=== PATIENT | female | born 1955 | race Caucasian/White ===

== ENCOUNTER → 2017-10-05 | Outpatient (CLI) | payer BC, OTHER ==
[2017-10-05 14:07] VITALS: BP 165/95; PULSE 88; RESP 16; TEMP 98.2; BMI 36.6
--- NOTE | 2017-10-05 17:00 | P.BASOAP ---
Subjective Progress Note Date: 10/05/17 Principal diagnosis: Morbid obesity Patient underwent laparoscopic banding approximately 10-[address] Hercules. She does not want to see him any longer. She recently has had some pain at the site of her port extending to the left. She notices decreased restriction. Denies heartburn. No vomiting or nausea. She is unaware how much fluid is in her band. Was under the impression after her last visit that there was something wrong with her band system. She was told that the band empties slowly. Objective - Vital Signs Vital signs: Vital Signs Temp 98.2 F 10/05/17 13:43 Pulse 88 10/05/17 13:43 Resp 16 10/05/17 13:43 BP 165/95 10/05/17 13:43 Pulse Ox Intake & Output 10/04/17 10/05/17 10/05/17 18:59 06:59 18:59 Weight 90.718 kg - Exam Abdomen: Soft, nontender, nondistended Assessment/Plan (1) Morbid obesity Narrative/Plan: The patient's band port was accessed. I was unable to aspirate fluid. Injection of fluid placed with some resistance and again no fluid could be aspirated following that. We'll proceed with fluoroscopic evaluation. Plan: Date: 10/05/17 Initial Weight: 98.883 kg Initial BMI: 39.9 Current Weight: 90.718 kg Current BMI: 36.6 Type of Surgery: Total Volume in Band: 0 Previous Volume: Volume Removed: Volume Added: 0 Band Size:
--- NOTE | 2017-10-05 17:02 | P.PCN ---
Date of Procedure: 10/05/17 Procedure(s) Performed: The patient's lap band port was palpated. The site was aseptically prepped. 1% lidocaine was infiltrated into the subcutaneous tissues through a diabetic syringe. The You needle was advanced into the port. Aspiration took place. Again no fluid could be aspirated. On the fluoroscopy table using Omnipaque I injected the port. A proximally 2 mL was added again meeting resistance. There was no leak identified in the band system. The band itself was noted to fill with contrast. Unfortunately I was unable to re-aspirate that contrast fluid with the exception of approximately 0.5 mL. The patient was taken back to the bariatric clinic following that. The band was reaccessed again under aseptic conditions. The patient was asked to sit and stand several times and in doing so I was able to remove the additional 1.5 mL of fluid. Prior to doing so the patient was having some dysphagia to liquids. The patient and I discussed the options. Patient will require some sort of revision with either port replacement, band removal, or conversion from band to either gastric bypass or sleeve gastrectomy. The patient will consider these options and contact me with her decision.
--- NOTE | 2017-10-06 07:48 | FL ---
Fluoroscopy support HISTORY: Port leak 57 seconds fluoroscopy time supplied to the referring clinician, 10 cc Omni 350 utilized, no saved im ages IMPRESSION: Fluoroscopy support to general surgery.
== END | disposition home or self-care (01) ==
LOC: BARWHC3 13:13
PROVIDERS: ATTEND Surgery
DX: E66.01 Morbid (severe) obesity due to excess calories (principal); Z68.36 Body mass index [BMI] 36.0-36.9, adult; Z98.890 Other specified postprocedural states
CPT/HCPCS: 74240; 99212; Q9967

== ENCOUNTER → 2017-10-25 | Outpatient (CLI) | payer OTHER ==
[2017-10-25 15:18] VITALS: BMI 36.5
== END | disposition home or self-care (01) ==
LOC: BARWHC3 08:42
PROVIDERS: ATTEND Surgery
DX: E66.01 Morbid (severe) obesity due to excess calories (principal); Z68.36 Body mass index [BMI] 36.0-36.9, adult; Z71.3 Dietary counseling and surveillance
CPT/HCPCS: 97804

== ENCOUNTER 2017-11-03 10:56 | Day surgery (SDC) | payer OTHER ==
[2017-10-29 14:15] VITALS: BMI 36.6
[~2017-11-03 10:56] MED LIST: LACTATED RINGERS 1,000 ML IV SCH; LIDOCAINE 1% 20 ML VIAL (10MG/ML) FOR IV START INTRADERMA PRN
[2017-11-03 11:17] VITALS: RESP 16; TEMP 98
[2017-11-03] MEDS ORDERED: LIDOCAINE 1% INJ 10MG/ML (20 ML MDV) ONE (11:48)
[2017-11-03] MEDS ORDERED: PROPOFOL 10 MG/ML 20 ML VIAL IV ONE (11:48)
--- NOTE | 2017-11-03 12:01 | P.GSHP ---
History of Present Illness H&P Date: 11/03/17 Chief Complaint: vomiting Patient here today for upper endoscopy as a part of her preoperative workup for lap band removal and sleeve gastrectomy. She was having issues with vomiting when her band was recently filled. She is having issues with a port that is malfunctioning. No significant heartburn symptoms. Past Medical History Past Medical History: Cancer, Hypertension History of Any Multi-Drug Resistant Organisms: None Reported Past Surgical History: Bariatric Surgery, Section Additional Past Surgical History / Comment(s): Colonoscopy Past Anesthesia/Blood Transfusion Reactions: No Reported Reaction Smoking Status: Never smoker - Past Family History Mother Family Medical History: No Reported History Medications and Allergies Home Medications Medication Instructions Recorded Confirmed Type DULoxetine HCL [Cymbalta] 1 cap PO BID 10/08/17 11/03/17 History Propranolol HCl [Propranolol HCl 120 mg PO DAILY 10/08/17 11/03/17 History ER] Aspirin 81 mg PO DAILY 10/29/17 11/03/17 History Fluticasone Nasal [place] [Flonase 2 spr EA NOSTRIL DAILY 10/29/17 11/03/17 History Nasal [place]] Multivitamins, Thera [Multivitamin 1 tab PO DAILY 10/29/17 11/03/17 History (formulary)] Simvastatin [Zocor] 10 mg PO HS 10/29/17 11/03/17 History Allergies Allergy/AdvReac Type Severity Reaction Status Date / Time Penicillins Allergy Unknown Verified 11/03/17 11:13 Surgical - Exam Vital Signs Temp Pulse Resp BP Pulse Ox 98 F 57 L 16 136/76 94 L 11/03/17 11:15 11/03/17 11:15 11/03/17 11:15 11/03/17 11:15 11/03/17 11:15 Physical exam: General: Well-developed, well-nourished HEENT: Normocephalic, sclerae nonicteric Abdomen: Nontender, nondistended Extremities: No edema Neuro: Alert and oriented Assessment and Plan (1) Vomiting Narrative/Plan: Will proceed with upper endoscopy at this time Current Visit: Yes Status: Acute Code(s): R11.10 - VOMITING, UNSPECIFIED SNOMED Code(s): 284803211
--- NOTE | 2017-11-03 12:03 | P.PCN ---
Date of Procedure: 11/03/17 Procedure(s) Performed: Preoperative Dx: Malfunctioning LAP-BAND port, vomiting Postoperative Dx: Mild gastritis, suspected gastric prolapse Procedure: EGD with Bx Anesthesia: Sedation Endoscopist: Dr. Cruz Specimens: Antrum Endoscopic Procedure: The patient was on the endoscopy table in the left decubitus position. The Olympus gastroscope was inserted into the oropharynx and passed under direct visualization to the region of the third portion of the duodenum. From that point the scope was slowly withdrawn inspecting all surfaces carefully. There were no neoplastic inflammatory or polypoid lesions throughout the duodenum. The pylorus was widely patent. The stomach was carefully inspected. There was while gastritis present. A biopsy of the antrum took place to rule out H. pylori. Retroflexion revealed a previous band plication. No evidence of band erosion was seen. There was a enlarged pouch above the band. I suspect some degree of gastric prolapse. There was also noted to be some food-like material present above the band narrowing. Mild inflammation in the proximal gastric pouch was seen. The esophagus was free of abnormalities. I was unable to visualize a definite hiatal hernia. The patient was then taken to the recovery room in stable condition per anesthesia guidelines. Recommendations: Await biopsy results. Proceed with lap band removal and anticipated sleeve gastrectomy.
[2017-11-03 12:40] VITALS: BP 120/85; PULSE 61
== END 2017-11-03 12:48 | disposition home or self-care (01) ==
LOC: ORWHC2ENDO 10:56
PROVIDERS: ATTEND Surgery
DX: K29.50 Unspecified chronic gastritis without bleeding (principal); Z98.84 Bariatric surgery status; I10 Essential (primary) hypertension; E78.5 Hyperlipidemia, unspecified; F39 Unspecified mood [affective] disorder; Z79.82 Long term (current) use of aspirin; Z79.51 Long term (current) use of inhaled steroids; Z79.899 Other long term (current) drug therapy; Z88.0 Allergy status to penicillin; Z87.891 Personal history of nicotine dependence
CPT/HCPCS: 88305; 88342; 43239; J2001; J2704

== ENCOUNTER 2017-11-29 11:03 | Inpatient (IN) | payer OTHER ==
[~2017-11-29 11:03] MED LIST changes: +DEXAMETHASONE SOD PHOSPHATE 10 MG/ML 1 ML VIAL IV ONE; -LACTATED RINGERS 1,000 ML IV SCH; +MORPHINE SULFATE 2 MG/ML SYRINGE IV PRN; +ONDANSETRON 4 MG/2 ML VIAL IVP ONE; +SCOPOLAMINE 1.5MG/72HR PATCH TRANSDERM ONE; +ceFAZolin IN SWFI 2 GM/20 ML SYRINGE IVP ONE
--- NOTE | 2017-11-29 12:06 | P.GSHP ---
History of Present Illness H&P Date: 11/29/17 Chief Complaint: Morbid obesity, gastric prolapse, broken LAP-BAND port 61-year-old female well known to our service. Most recently came back to the bariatric clinic in September. Patient had a lap band placed approximately 10-15 years ago. She was having pain in her port site. She described very little restriction. No heartburn or vomiting. Her band was accessed and we had difficulty adding or removing fluid from the band. A fluoroscopic adjustment did not show any evidence of leak. An upper endoscopy then showed what was thought to represent an enlarged gastric pouch consistent with probable prolapse. Here today for band removal and planned sleeve gastrectomy. Past Medical History Past Medical History: Cancer, Hypertension, Osteoarthritis (OA) Additional Past Medical History / Comment(s): CERVICAL CANCER History of Any Multi-Drug Resistant Organisms: None Reported Past Surgical History: Bariatric Surgery, Section Additional Past Surgical History / Comment(s): LAP BAND SURGERY, Past Anesthesia/Blood Transfusion Reactions: Motion Sickness Smoking Status: Never smoker - Past Family History Mother Family Medical History: No Reported History Medications and Allergies Home Medications Medication Instructions Recorded Confirmed Type DULoxetine HCL [Cymbalta] 30 mg PO BID 10/08/17 11/22/17 History Propranolol HCl [Propranolol HCl 120 mg PO DAILY 10/08/17 11/22/17 History ER] Aspirin 81 mg PO DAILY 10/29/17 11/22/17 History Fluticasone Nasal [place] [Flonase 2 spr EA NOSTRIL DAILY 10/29/17 11/22/17 History Nasal [place]] Multivitamins, Thera [Multivitamin 1 tab PO DAILY 10/29/17 11/22/17 History (formulary)] Simvastatin [Zocor] 10 mg PO HS 10/29/17 11/22/17 History Allergies Allergy/AdvReac Type Severity Reaction Status Date / Time Penicillins Allergy Unknown Verified 11/29/17 11:40 Surgical - Exam Vital Signs Temp Pulse Resp BP Pulse Ox 97.6 F 59 L 18 142/88 98 11/29/17 11:55 11/29/17 11:55 11/29/17 11:55 11/29/17 11:55 11/29/17 11:55 Physical exam: General: Well-developed, well-nourished HEENT: Normocephalic, sclerae nonicteric Abdomen: Nontender, nondistended Extremities: No edema Neuro: Alert and oriented Assessment and Plan (1) Morbid obesity Narrative/Plan: Will proceed with laparoscopic lap band removal and anticipated laparoscopic sleeve gastrectomy. The risks of bleeding, infection, stenosis, stricture, leak , abscess, fistula formation, peritonitis, poor weight loss, reflux, vomiting, conversion to an open procedure, aborting sleeve gastrectomy, VA, PE, DVT, and were discussed. The patient understands and wishes to proceed. Current Visit: No Status: Acute Code(s): E66.01 - MORBID (SEVERE) OBESITY DUE TO EXCESS CALORIES SNOMED Code(s): 594193778
[2017-11-29] MEDS: LACTATED RINGERS 1,000 ML IV SCH (12:07)
[2017-11-29] MEDS ORDERED: ENOXAPARIN 40 MG/0.4 ML SYRINGE SQ STA (12:12)
[2017-11-29] MEDS ORDERED: GLYCOPYRROLATE 0.2 MG/ML 2 ML VIAL ONE (12:26)
[2017-11-29] MEDS ORDERED: fentaNYL (PF) 50 MCG/ML 2 ML AMP ONE (12:26)
[2017-11-29] MEDS ORDERED: LIDOCAINE 1% INJ 10MG/ML (20 ML MDV) ONE (12:26)
[2017-11-29] MEDS ORDERED: SUCCINYLCHOLINE CHLORIDE 100 MG/5 ML SYR IV ONE (12:26)
[2017-11-29] MEDS ORDERED: MIDAZOLAM 2 MG/2 ML VIAL ONE (12:26)
[2017-11-29] MEDS ORDERED: ePHEDrine SULFATE/0.9% NACL/PF 50 MG/5 ML SYRINGE IV ONE (12:26)
[2017-11-29] MEDS ORDERED: PROPOFOL 10 MG/ML 20 ML VIAL IV ONE (12:26)
[2017-11-29] MEDS ORDERED: ROCURONIUM BROMIDE 10 MG/ML 10 ML VIAL IV ONE (12:26)
[2017-11-29] MEDS ORDERED: HYDROmorphone (PF) 1 MG/ML ONE (12:26)
[2017-11-29] MEDS ORDERED: NEOSTIGMINE 1 MG/ML 10 ML VIAL ONE (12:26)
[2017-11-29] MEDS ORDERED: METHYLENE BLUE 10 MG/ML (10 ML VIAL) ONE (12:26)
[2017-11-29] MEDS ORDERED: BUPIVACAINE (PF) 0.25% 30 ML VIAL SQ ONE ×2 (12:58)
[2017-11-29] MEDS ORDERED: LACTATED RINGERS 1,000 ML IV ONE (13:02)
[2017-11-29] MEDS ORDERED: diphenhydrAMINE 50 MG/ML 1 ML VIAL IVP PRN (15:36)
[2017-11-29] MEDS ORDERED: ONDANSETRON 4 MG/2 ML VIAL IVP PRN (15:36)
[2017-11-29] MEDS ORDERED: HYOSCYAMINE ORAL DROPS 1.875 MG/15 ML BOTTLE PO PRN (15:36)
[2017-11-29] MEDS ORDERED: ACETAMINOPHEN IV (For NPO) 1,000 MG in EMPTY BAG 1 BAG IVPB ONE (15:36)
[2017-11-29] MEDS ORDERED: NALOXONE 0.4 MG/ML 1 ML VIAL IV PRN (15:36)
[2017-11-29] MEDS ORDERED: SIMETHICONE 40 MG/0.6 ML DROPS 2,000 MG/30 ML BOTTLE PO PRN (15:36)
[2017-11-29] MEDS ORDERED: MORPHINE SULFATE 4 MG/ML SYRINGE IVP PRN (15:36)
--- NOTE | 2017-11-29 15:43 | P.OP ---
Date of Procedure: 11/29/17 Procedure(s) Performed: PREOPERATIVE DIAGNOSIS: Morbid obesity, hypertension, GERD, gastric prolapse, malfunctioning lap band port POSTOPERATIVE DIAGNOSIS: Same PROCEDURE: Laparoscopic sleeve gastrectomy with lap band removal SURGEON: Nancy EBL: Minimal ANESTHESIA: General COMPLICATIONS: None OPERATIVE PROCEDURE: The patient was brought and placed on the operating room table in the supine position. The patient was placed under general anesthesia at that time. The patient was then placed in lithotomy. The abdomen was prepped and draped in the usual sterile fashion. The previous port incision was localized and then incised using a scalpel. The port was easily excised using electrocautery. Entrance into the peritoneal cavity occurred using a 5 mm optical trocar through the old trocar entrance site. Insufflation took place to 15 mmHg. A right subxiphoid 5 mm trocar was placed. This was then removed and the medium Carlos hook was used to elevate the left lobe of the liver anteriorly. An additional 5 mm trocar was placed under direct visualization in the left lateral upper quadrant. The original 5 mm trocar was switched to a 15 mm trocar. A additional 5 mm trocar was placed in the right upper quadrant under direct visualization and a 5 mm trocar was placed in the left upper quadrant under direct visualization and a 15 mm trocar in the supraumbilical location. The liver was retracted using a medium Carlos liver retractor through the right subxiphoid trocar site. The adhesions between the band site and the left lobe of liver were minimal and these were lysed using both blunt dissection and cautery. The hiatus was inspected. The patient had no visible hiatal hernia. The plication was taken down sharply. At that point I moved to the mid aspect of the greater curvature the stomach. The short gastric vasculature was divided using a LigaSure device proximally. I then switched and divided the short gastrics distally to a 3-4 cm from the pylorus. The dissection took place up to the left diaphragmatic crura at that point. The posterior short gastrics and posterior lateral band plication were likewise divided using the LigaSure device and blunt dissection. Once the stomach was fully mobilized the blunt tipped 40-Yi bougie dilator was advanced into the stomach and advanced all the way to the prepyloric location. A black echelon 60 stapler was utilized and fired tangentially across the antrum taking care to avoid narrowing at the incisura angularis. Subsequent firings of the stapler took place. A total of 5 green echelon 60 staplers with seam guard took place proximally staying on the outer edge of our dilator. The oral gastric tube was reinserted. The stomach was insufflated with approximately 100 mL of methylene blue. No evidence of leak or obstruction was seen. The distal aspect of the sleeve was then reapproximated to the gastrosplenic and gastrocolic ligament using a short running 2-0 strata fix suture. This was done to prevent kinking or twisting of the sleeve. Tisseel fibrin glue was used along the length of the staple line area The stomach remnant was removed from the 15 mm trocar site without difficulty. The fascia at the 15 more site was closed using interrupted 0 Vicryl sutures with the laparoscopic suture passer and Sergio Timmy technique. The insufflation was evacuated. The skin at all 5 incisions were closed using 4-0 Monocryl sutures. Steri-Strips and sterile dressings were then applied. DISPOSITION: Stable to recovery room
[2017-11-29] MEDS: ALBUTEROL NEBULIZED 2.5 MG/3 ML INHALATION SCH ×2 (16:20→20:59)
[2017-11-29] MEDS ORDERED: KETOROLAC 30 MG/ML 1 ML VIAL IVP ONE (16:30)
[2017-11-29] MEDS: 0.9% NACL WITH KCL 20 MEQ/L 1,000 ML IV SCH (16:52)
[2017-11-29 18:34] VITALS: BMI 34.5
[2017-11-29] MEDS: DULoxetine HCL 30 MG CAPSULE.DR PO SCH (21:14)
[2017-11-29] MEDS: ATORVASTATIN 10 MG TAB PO SCH (21:14)
[2017-11-29] MEDS: KETOROLAC 30 MG/ML 1 ML VIAL IVP SCH (23:28)
[2017-11-30] MEDS ORDERED: hydrALAZINE HCL 20 MG/ML 1 ML VIAL IVP PRN (01:26)
--- NOTE | 2017-11-30 03:23 | CONS ---
CONSULTATION DATE OF SERVICE: 11/29/17 REASON FOR CONSULTATION: Advice regarding hypertension and other multiple medical issues requested by Dr. Cruz. HISTORY OF PRESENT ILLNESS: This 61-year-old woman with a past medical history of hypertension, history of DJD, history of bariatric surgery, anxiety, depression being followed by no primary care physician in the outpatient setting in [place] was admitted after laparoscopic sleeve gastrectomy, lap band removal by Dr. Cruz. There is no history of fever, rigors or chills. No history of headache, loss of consciousness or seizures. PAST MEDICAL HISTORY: Hypertension, history of DJD, history of cervical cancer, bariatric surgery, history of anxiety, depression. MEDICATIONS: Home medications are: 1. Zocor 10 mg q.h.s.. 2. Propranolol 120 mg p.o. daily. 3. Multivitamins one daily. 4. Flonase nasal spray. 5. Cymbalta 30 mg b.i.d. 6. Aspirin 81 mg. 7. Mylicon 40 mg q.h.s. 8. Zofran 4 mg q.8h p.r.n. 9. Prilosec 20 mg a.c. breakfast. 10.[place] 5 mg q.4h. 11.Dulcolax 5 mg daily p.r.n. ALLERGIES: PENICILLIN. FAMILY HISTORY: No history of heart disease or strokes in family. SOCIAL HISTORY: No history of smoking. No history of alcohol intake. REVIEW OF SYSTEMS: ENT: No diminished vision, no diminished hearing. Cardiovascular: No angina or palpitations. Respirations: No cough. No hemoptysis. GI as mentioned earlier. no dysuria. Nervous system: No numbness or weakness. Allergy/Immunology: No asthma or hayfever. Musculoskeletal as mentioned earlier. Hematology/Oncology: No history of anemia. ENDOCRINE: No history of diabetes or hypothyroidism. Constitutional: As mentioned earlier. Dermatology: Negative. Rheumatology: Negative. Psychiatric: As mentioned earlier. PHYSICAL EXAMINATION: Alert oriented x3. Pulse 92, blood pressure 150/99, respirations 16, temperature 98.2, pulse ox 94% on room air. HEENT: Conjunctivae normal. Oral mucosa moist. Neck is no jugular venous distention. No carotid bruit. No lymph nodes enlargement. Cardiovascular system: S1, S2 muffled. Respiratory: Breath sounds diminished in the bases. No rhonchi. No crackles. ABDOMEN: Soft. Status post surgery. Legs are no edema. No swelling. Central nervous system: Higher functions as mentioned earlier, moves all 4 limbs, no focal deficits. Lymphatics: No lymph nodes palpable in the neck, axillae or groin. Skin no ulcer, rash or bleeding. LABS: Not available. ASSESSMENT: 1. 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 2. Hypertension. 3. History of degenerative joint disease. 4. History of cervical cancer. 5. History of bariatric surgery. 6. History of lap band surgery. 7. Motion sickness. 8. History of depression. RECOMMENDATIONS AND DISCUSSION: In this 61-year-old woman who presented with multiple complex medical issues, we will monitor the patient closely, continue the current medications, continue symptomatic treatment. Otherwise, at this time I recommend resume the home medications when the patient is p.o. and cleared by surgery. Otherwise, DVT prophylaxis. Incentive spirometry. p.r.n. blood pressure medications. Recommend close follow up with primary physician in the outpatient setting. We will follow the patient closely with you. Thank you, Dr. Cruz for letting us participate in the care of this patient. MMODL / IJN: [id number] /
[2017-11-30] MEDS: LACTATED RINGERS 1,000 ML IV SCH (06:39)
[2017-11-30] MEDS: KETOROLAC 30 MG/ML 1 ML VIAL IVP SCH ×4 (06:39→18:09)
[2017-11-30 07:13] LABS: Basophils % (A) 0 %; Eosinophils % (A) 0 %; HCT 41.2 % (34.0-46.0); Lymphocytes # (A) 1.2 k/uL (1.0-4.8); Lymphocytes % (A) 10 %; MCH 29.5 pg (25.0-35.0); MCV 86.7 fL (80.0-100.0); Monocytes # (A) 0.5 k/uL (0-1.0); Monocytes % (A) 4 %; Neutrophils # (A) 10.6 k/uL (1.3-7.7); Neutrophils % (A) 85 %; Platelet Count 275 k/uL (150-450); RBC 4.75 m/uL (3.80-5.40); RDW 12.8 % (11.5-15.5); WBC 12.4 k/uL (3.8-10.6)
[2017-11-30] MEDS: ALBUTEROL NEBULIZED 2.5 MG/3 ML INHALATION SCH ×4 (07:13→20:08)
[2017-11-30 07:37] LABS: Anion Gap 13 mmol/L; Blood Urea Nitrogen 12 mg/dL (7-17); Calcium 9.4 mg/dL (8.4-10.2); Carbon Dioxide 24 mmol/L (22-30); Chloride 105 mmol/L (98-107); Phosphorus 3.8 mg/dL (2.5-4.5); Potassium 4.7 mmol/L (3.5-5.1); Sodium 142 mmol/L (137-145)
[2017-11-30] MEDS ORDERED: KETOROLAC 30 MG/ML 1 ML VIAL IVP SCH (08:00)
--- NOTE | 2017-11-30 08:58 | FL ---
EXAMINATION TYPE: FL UGI DATE OF EXAM: 11/30/2017 COMPARISON: NONE HISTORY: Postop bariatric surgery, gastric sleeve TECHNIQUE: A single contrast UGI study is performed. FINDINGS: Patient was given 2 ounces Omni 350 orally, 1 minute 46 seconds fluoroscopy time, 12 obtain ed images The esophagus shows normal motility and emptying into the stomach. No evidence of hiatal hernia or s tricture noted. There is post gastric sleeve change, proximal pouch is noted. There is hesitancy of the contrast mate rial across the surgical site. No extravasation. Proximal small bowel is normal. IMPRESSION: Postop changes as described.
--- NOTE | 2017-11-30 10:40 | P.PN ---
<Mercy Crawford M - Last Filed: 11/30/17 10:34> Subjective Progress Note Date: 11/30/17 61-year-old female seen and examined. Patient states plain Tylenol has been effective for pain control. Reports no nausea or vomiting. Reports passing gas no stool. Surgical dressing sites dry. Afebrile heart rate in the 80s to 90 on room air sats are 97% white count this morning 12.4 hemoglobin 14 electrolyte within normal limits patient states that she has been up ambulating in the long with no difficulty Laparoscopic sleeve gastrectomy with lap band removal done on November 29 Objective - Vital Signs Vital signs: Vital Signs Temp 98.7 F 11/30/17 07:00 Pulse 98 11/30/17 07:27 Resp 14 11/30/17 07:00 BP 133/85 11/30/17 07:00 Pulse Ox 97 11/30/17 07:27 Intake & Output 11/29/17 11/30/17 11/30/17 18:59 06:59 18:59 Intake Total 1875 Output Total 20 Balance 1855 Weight 85.729 kg Intake: IV 5 Output: Estimated Blood Loss 20 Other: Voiding Method Toilet # Voids 3 - Exam Physical exam Pleasant 61-year-old female resting comfortably in bed has been up ambulating in the long Lungs adequate air movement bilaterally on room air sats greater than 95% no cough Heart S1-S2 audible regular heart rate in the 80s to 90s Abdomen soft surgical tenderness appropriate surgical dressings dry passing gas no stool no nausea no vomiting no difficulty in urinating nondistended Extremities no edema no - Labs CBC & Chem 7: 11/30/17 06:49 11/30/17 06:49 Labs: Abnormal Lab Results - Last 24 Hours (Table) 11/30/17 Range/Units 06:49 WBC 12.4 H (3.8-10.6) k/uL Neutrophils # 10.6 H (1.3-7.7) k/uL Assessment and Plan Assessment: Impression Morbid obesity Hypertension Esophageal reflex Gastric prolapse Malfunctioning LAP-BAND port Status post November laparoscopic sleeve gastrectomy with a lap and removal Plan Follow up on the pending upper GI series Continue bariatric course Pain control DVT and GI prophylaxis IV fluid for hydration The above impression and plan of care have been discussed and directed by signing physician. Mercy Crawford nurse practitioner acting as scribe for signing physician. <Alex Cruz - Last Filed: 11/30/17 12:50> Objective - Vital Signs Vital signs: Vital Signs Temp 98.7 F 11/30/17 07:00 Pulse 84 11/30/17 11:41 Resp 14 11/30/17 07:00 BP 133/85 11/30/17 07:00 Pulse Ox 97 11/30/17 07:27 Intake & Output 11/29/17 11/30/17 11/30/17 18:59 06:59 18:59 Intake Total 1875 Output Total 20 Balance 1855 Weight 85.729 kg Intake: IV 1875 Output: Estimated Blood Loss 20 Other: Voiding Method Toilet # Voids 3 - Labs CBC & Chem 7: 11/30/17 06:49 11/30/17 06:49 Labs: Abnormal Lab Results - Last 24 Hours (Table) 11/30/17 Range/Units 06:49 WBC 12.4 H (3.8-10.6) k/uL Neutrophils # 10.6 H (1.3-7.7) k/uL Assessment and Plan Assessment: As above. Patient doing well. Upper GI shows no leak or obstruction. Begin bariatric clear liquids. Continue ambulation. Recheck labs tomorrow. (1) Morbid obesity Current Visit: Yes Status: Acute Code(s): E66.01 - MORBID (SEVERE) OBESITY DUE TO EXCESS CALORIES SNOMED Code(s): 341283384
[2017-11-30] MEDS: FLUTICASONE 50MCG/SPRAY NASAL 16GM EA NOSTRIL SCH (10:59)
[2017-11-30] MEDS: ENOXAPARIN 40 MG/0.4 ML SYRINGE SQ SCH ×2 (10:59→21:14)
[2017-11-30] MEDS: PANTOPRAZOLE 40 MG/10 ML VIAL IV SCH (10:59)
[2017-11-30] MEDS: PROPRANOLOL LA 60 MG CAP.SA.24H PO SCH (10:59)
[2017-11-30] MEDS: DULoxetine HCL 30 MG CAPSULE.DR PO SCH ×2 (11:00→21:14)
[2017-11-30] MEDS: 0.9% NACL WITH KCL 20 MEQ/L 1,000 ML IV SCH (11:06)
[2017-11-30] MEDS: 1: MVI, ADULT NO.4 WITH VIT K 10 ML, THIAMINE 100 MG, FOLIC ACID 1 MG, POTASSIUM CHLORID IV SCH ×12 (12:42→19:47)
--- NOTE | 2017-11-30 15:33 | PN ---
PROGRESS NOTE DATE OF SERVICE: 11/30/2017 This 61-year-old woman who was admitted after gastric sleeve surgery is improving significantly. No chest pain. No palpitations. No fever. The patient is able to ambulate normally. EXAM: Alert and oriented times three. Pulse 68, blood pressure 118/70, respirations 16, temperature 98.2, pulse ox 98% on room air. HEENT: Conjunctivae normal. Neck: No jugular venous distention. CARDIOVASCULAR: S1, S2 muffled. Respiratory: Breath sounds diminished in the bases. No rhonchi and no crackles. Abdomen soft status post surgery. Legs: No edema. No swelling. Central nervous system: No focal deficits. LABS: WBC 12.4. ASSESSMENT: 1. 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 2. Hypertension. 3. History of degenerative joint disease. 4. History of cervical cancer. 5. History of bariatric surgery. 6. History of lap band surgery. 7. History of motion sickness. 8. Depression. RECOMMENDATIONS AND DISCUSSION: I recommend to continue current medications, management and symptomatic treatment. Blood pressure is improving at this time. I would recommend incentive spirometry, DVT prophylaxis. Closely monitor with surgery. Further recommendations to follow. MMODL / IJN: [id number] /
[2017-11-30] MEDS: ATORVASTATIN 10 MG TAB PO SCH (21:14)
[2017-12-01] MEDS: KETOROLAC 30 MG/ML 1 ML VIAL IVP SCH ×3 (00:39→12:38)
[2017-12-01] MEDS: 1: MVI, ADULT NO.4 WITH VIT K 10 ML, THIAMINE 100 MG, FOLIC ACID 1 MG, POTASSIUM CHLORID IV SCH ×24 (00:39→13:47)
[2017-12-01] MEDS: LACTATED RINGERS 1,000 ML IV SCH (04:47)
[2017-12-01] MEDS: ALBUTEROL NEBULIZED 2.5 MG/3 ML INHALATION SCH ×2 (07:32→11:59)
[2017-12-01 07:52] LABS: Basophils % (A) 0 %; Eosinophils # (A) 0.2 k/uL (0-0.7); Eosinophils % (A) 3 %; HGB 11.9 gm/dL (11.4-16.0); Lymphocytes # (A) 1.8 k/uL (1.0-4.8); Lymphocytes % (A) 28 %; MCH 29.5 pg (25.0-35.0); MCHC 33.1 g/dL (31.0-37.0); Mean Platelet Volume 7.6; Monocytes # (A) 0.4 k/uL (0-1.0); Monocytes % (A) 6 %; Neutrophils % (A) 61 %; Platelet Count 217 k/uL (150-450); RBC 4.04 m/uL (3.80-5.40); RDW 13.1 % (11.5-15.5); WBC 6.6 k/uL (3.8-10.6)
[2017-12-01] MEDS ORDERED: BISACODYL 5 MG TABLET.DR PO PRN (08:00)
[2017-12-01 08:03] LABS: Anion Gap 8 mmol/L; Blood Urea Nitrogen 8 mg/dL (7-17); Calcium 8.8 mg/dL (8.4-10.2); Carbon Dioxide 27 mmol/L (22-30); Chloride 109 mmol/L (98-107); Glucose 78 mg/dL (74-99); Potassium 4.3 mmol/L (3.5-5.1); Sodium 144 mmol/L (137-145)
[2017-12-01 08:50] VITALS: BP 145/79; PULSE 64; RESP 16; TEMP 98.5
[2017-12-01] MEDS: ENOXAPARIN 40 MG/0.4 ML SYRINGE SQ SCH ×2 (08:56→09:05)
[2017-12-01] MEDS: PANTOPRAZOLE 40 MG/10 ML VIAL IV SCH (08:56)
[2017-12-01] MEDS: PROPRANOLOL LA 60 MG CAP.SA.24H PO SCH (08:56)
[2017-12-01] MEDS: DULoxetine HCL 30 MG CAPSULE.DR PO SCH (08:56)
[2017-12-01] MEDS: FLUTICASONE 50MCG/SPRAY NASAL 16GM EA NOSTRIL SCH (08:57)
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
--- NOTE | 2017-12-01 22:22 | PN ---
PROGRESS NOTE DATE OF SERVICE: 12/01/2017 This 61-year-old woman was admitted after gastric sleeve surgery is improving significantly. No chest pain. No palpitations. No fever. EXAM: Alert oriented x3. The pulse is 64, blood pressure 145/70, respiration 16, temperature 98.4, pulse ox 96% room air. HEENT: Conjunctivae normal. NECK: No JVD. CARDIOVASCULAR: S1, S2. RESPIRATORY: Breath sounds diminished in the bases. A few scattered rhonchi. No crackles. Abdomen is soft, nontender. No mass palpable. LEGS: No edema. NERVOUS SYSTEM: No focal deficits. LABS: WBC 6.2, hemoglobin 11.9. Sodium 142, potassium 4.3. ASSESSMENT: 1. 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 2. Hypertension. 3. History of degenerative joint disease. 4. History of cervical cancer. 5. History of bariatric surgery. 6. History of lap band surgery. 7. History of motion sickness. 8. Depression. RECOMMENDATIONS AND DISCUSSION: I recommend to continue current medications, management and symptomatic treatment. Recommend incentive spirometry. Continue the home medications. Follow up with primary physician in the [place] area. Further recommendations to follow. MMODL / IJN: [id number] /
== END 2017-12-01 14:57 | disposition home or self-care (01) | DRG 328 ==
LOC: 2ORWHC 11:03 → 3SUR 15:25
PROVIDERS: ADMIT Surgery; ATTEND Surgery
PROC: 0DB64Z3 Excision of Stomach, Percutaneous Endoscopic Approach, Vertical (ICD-10-PCS; principal; 2017-11-29 13:00)
PROC: 0DP64CZ Removal of Extraluminal Device from Stomach, Percutaneous Endoscopic Approach (ICD-10-PCS; 2017-11-29 13:00)
DX: K95.09 Other complications of gastric band procedure (principal); E66.01 Morbid (severe) obesity due to excess calories; F32.9 Major depressive disorder, single episode, unspecified; F41.9 Anxiety disorder, unspecified; I10 Essential (primary) hypertension; K21.9 Gastro-esophageal reflux disease without esophagitis; M19.90 Unspecified osteoarthritis, unspecified site; K31.89 Other diseases of stomach and duodenum; Z68.34 Body mass index [BMI] 34.0-34.9, adult; Z79.82 Long term (current) use of aspirin; Z79.899 Other long term (current) drug therapy; Z85.41 Personal history of malignant neoplasm of cervix uteri; Z88.0 Allergy status to penicillin; Y73.8 Miscellaneous gastroenterology and urology devices associated with adverse incidents, not elsewhere classified
CPT/HCPCS: 74240; 80048; 80051; 82310; 82565; 83735; 84100; 84520; 85025; 88307; 94640; 94760; 94762

== ENCOUNTER → 2017-12-07 | Outpatient (CLI) | payer OTHER ==
[2017-12-07 14:27] VITALS: BP 129/87; PULSE 67; TEMP 97.7; BMI 34.3
--- NOTE | 2017-12-07 16:48 | P.BASOAP ---
Subjective Progress Note Date: 12/07/17 Principal diagnosis: Morbid obesity Patient follows up after recent sleeve gastrectomy. She feels well at this time. Denies vomiting. Only mild nausea at times. Apparently over this past weekend she had some epigastric discomfort that resolved for the most part. No dysphagia. Tolerating liquids. 60 ounces of liquids daily over 70 g of protein daily. Vital signs are stable today. No tachycardia. Denies fevers. Objective - Vital Signs Vital signs: Vital Signs Temp 97.7 F 12/07/17 14:25 Pulse 67 12/07/17 14:25 Resp BP 129/87 12/07/17 14:25 Pulse Ox Intake & Output 12/06/17 12/07/17 12/07/17 18:59 06:59 18:59 Weight 85.185 kg - Exam Abdomen: Soft, nondistended, incisions with mild induration and erythema at site of Steri-Strips Assessment/Plan (1) Morbid obesity Narrative/Plan: Patient doing fairly well postoperatively. He appears to be developing a ALLERGIC reaction to the adhesive. She will start Benadryl. Her pain is improved. If this recurs she plans to contact me. Continue dietary and exercise regimen. Plan: Date: 12/07/17 Initial Weight: 98.883 kg Initial BMI: 39.9 Current Weight: 85.185 kg Current BMI: 34.3 Type of Surgery: Total Volume in Band: 0 Previous Volume: Volume Removed: Volume Added: Band Size:
== END | disposition home or self-care (01) ==
LOC: BARWHC3 13:31
PROVIDERS: ATTEND Surgery
DX: Z48.815 Encounter for surgical aftercare following surgery on the digestive system (principal); E66.01 Morbid (severe) obesity due to excess calories; Z68.34 Body mass index [BMI] 34.0-34.9, adult
CPT/HCPCS: 97803; 99211

== ENCOUNTER → 2017-12-21 | Outpatient (CLI) | payer OTHER ==
[2017-12-21 13:21] VITALS: BP 134/75; PULSE 55; TEMP 98.6; BMI 33.8
[2017-12-21 14:27] LABS: ALT 32 U/L (9-52); AST 26 U/L (14-36); Albumin 4.2 g/dL (3.5-5.0); Alkaline Phosphatase 73 U/L (38-126); Anion Gap 11 mmol/L; Blood Urea Nitrogen 18 mg/dL (7-17); Calcium 9.6 mg/dL (8.4-10.2); Carbon Dioxide 29 mmol/L (22-30); Chloride 103 mmol/L (98-107); Glucose 100 mg/dL (74-99); Potassium 4.3 mmol/L (3.5-5.1); Sodium 143 mmol/L (137-145); Total Bilirubin 0.5 mg/dL (0.2-1.3)
[2017-12-21 14:31] LABS: HGB 13.1 gm/dL (11.4-16.0); MCH 29.9 pg (25.0-35.0); MCHC 34.4 g/dL (31.0-37.0); Mean Platelet Volume 7.1; Platelet Count 288 k/uL (150-450); RBC 4.37 m/uL (3.80-5.40); RDW 12.7 % (11.5-15.5); WBC 5.5 k/uL (3.8-10.6)
--- NOTE | 2017-12-21 16:03 | P.BASOAP ---
Subjective Progress Note Date: 12/21/17 Principal diagnosis: Morbid obesity Patient returns today for reevaluation. She has lost 5-6 pounds over the last 2 weeks. The rash around her incision sites are improved. Denies heartburn. She is due for one month labs at this time. No pain. No nausea or vomiting. Objective - Vital Signs Vital signs: Vital Signs Temp 98.6 F 12/21/17 13:18 Pulse 55 L 12/21/17 13:18 Resp BP 134/75 12/21/17 13:18 Pulse Ox Intake & Output 12/20/17 12/21/17 12/21/17 18:59 06:59 18:59 Weight 83.869 kg - Exam Abdomen: Soft, nondistended, nontender, incisions clean and dry - Labs CBC & Chem 7: 12/21/17 14:07 12/21/17 14:07 Labs: Abnormal Lab Results - Last 24 Hours (Table) 12/21/17 Range/Units 14:07 BUN 18 H (7-17) mg/dL Glucose 100 H (74-99) mg/dL Assessment/Plan (1) Morbid obesity Narrative/Plan: Continue dietary and exercise regimen. Continue antiacid therapy. Check one month labs today. Follow-up 8 weeks given the patient's long drive. Plan: Date: 12/21/17 Initial Weight: 98.883 kg Initial BMI: 39.9 Current Weight: 83.869 kg Current BMI: 33.8 Type of Surgery: Total Volume in Band: 0 Previous Volume: Volume Removed: Volume Added: Band Size:
[2017-12-21 19:45] LABS: Vitamin D 25 Hydroxy 19.5 ng/mL (30.0-100.0)
== END | disposition home or self-care (01) ==
LOC: BARWHC3 12:50
PROVIDERS: ATTEND Surgery
DX: E66.01 Morbid (severe) obesity due to excess calories (principal); K90.89 Other intestinal malabsorption; E55.9 Vitamin D deficiency, unspecified; Z68.33 Body mass index [BMI] 33.0-33.9, adult
CPT/HCPCS: 36415; 80053; 82306; 82607; 83540; 84425; 85027; 97803; 99211

== ENCOUNTER → 2018-05-24 | Outpatient (CLI) | payer OTHER ==
[2018-05-24 14:28] VITALS: BP 122/84; PULSE 52; RESP 20; TEMP 98.4; BMI 31.2
[2018-05-24 16:29] LABS: HCT 40.4 % (34.0-46.0); HGB 13.3 gm/dL (11.4-16.0); MCHC 32.9 g/dL (31.0-37.0); MCV 91.1 fL (80.0-100.0); Mean Platelet Volume 6.9; Platelet Count 262 k/uL (150-450); RBC 4.43 m/uL (3.80-5.40); RDW 12.9 % (11.5-15.5); WBC 6.8 k/uL (3.8-10.6)
[2018-05-24 16:42] LABS: Albumin 4.3 g/dL (3.5-5.0); Calcium 9.7 mg/dL (8.4-10.2); Potassium 4.4 mmol/L (3.5-5.1); Total Bilirubin 0.6 mg/dL (0.2-1.3); Total Protein 7.4 g/dL (6.3-8.2)
--- NOTE | 2018-05-24 23:15 | P.BASOAP ---
Subjective Progress Note Date: 05/24/18 Principal diagnosis: Morbid obesity Patient has had poor follow-up. Surgery was initially in November of this year. He has not been taking in a large volume of liquids. She is due for blood work. Mild nausea at times. She is taking her vitamin D at times. Denies reflux. Objective - Vital Signs Vital signs: Vital Signs Temp 98.4 F 05/24/18 14:21 Pulse 52 L 05/24/18 14:21 Resp 20 05/24/18 14:21 BP 122/84 05/24/18 14:21 Pulse Ox Intake & Output 05/24/18 05/24/18 05/25/18 06:59 18:59 06:59 Weight 77.564 kg - Exam Abdomen: Soft, nontender, nondistended - Labs CBC & Chem 7: 05/24/18 16:02 05/24/18 16:02 Labs: Abnormal Lab Results - Last 24 Hours (Table) 05/24/18 Range/Units 16:02 Carbon Dioxide 31 H (22-30) mmol/L BUN 19 H (7-17) mg/dL Assessment/Plan (1) Morbid obesity Narrative/Plan: Will check 3 month labs at this time. Continue dietary and exercise regimen. Increase fluid intake. Follow-up in 1-2 months. Plan: Date: 05/24/18 Initial Weight: 98.883 kg Initial BMI: 39.9 Current Weight: 77.564 kg Current BMI: 31.2 Type of Surgery: Total Volume in Band: 0 Previous Volume: Volume Removed: Volume Added: Band Size:
[2018-05-25 02:34] LABS: Vitamin D 25 Hydroxy 24.2 ng/mL (30.0-100.0)
== END | disposition home or self-care (01) ==
LOC: BARWHC3 14:00
PROVIDERS: ATTEND Surgery
DX: E66.01 Morbid (severe) obesity due to excess calories (principal); K90.89 Other intestinal malabsorption; E55.9 Vitamin D deficiency, unspecified; Z68.31 Body mass index [BMI] 31.0-31.9, adult
CPT/HCPCS: 36415; 80053; 82306; 82607; 83540; 84425; 85027; 97803; 99211

== ENCOUNTER → 2019-08-22 | Outpatient (CLI) | payer BC, OTHER ==
[2019-08-22 13:25] VITALS: BP 157/82; PULSE 66; RESP 16; TEMP 98.3; BMI 32.3
[2019-08-22 14:08] LABS: HCT 43.3 % (34.0-46.0); HGB 14.2 gm/dL (11.4-16.0); MCH 29.7 pg (25.0-35.0); MCHC 32.8 g/dL (31.0-37.0); MCV 90.6 fL (80.0-100.0); Mean Platelet Volume 6.3; Platelet Count 319 k/uL (150-450); RBC 4.78 m/uL (3.80-5.40); RDW 12.8 % (11.5-15.5); WBC 6.5 k/uL (3.8-10.6)
--- NOTE | 2019-08-22 15:03 | P.BASOAP ---
Subjective Progress Note Date: 08/22/19 Principal diagnosis: Morbid obesity Patient's returns for reevaluation. Last seen April 2018. She had 3 month labs done at that time. Vitamin D was slightly low at 24. Had annual labs drawn today. Overall feels well. Overall fluid intake slightly increased since last visit. No nausea or vomiting, no GERD, does not take antiacids. She has been snacking more on sweets lately. 6 pound weight gain since last evaluation. Objective - Vital Signs Vital signs: Vital Signs Temp 98.3 F 08/22/19 13:23 Pulse 66 08/22/19 13:23 Resp 16 08/22/19 13:23 BP 157/82 08/22/19 13:23 Pulse Ox Intake & Output 08/21/19 08/22/19 08/22/19 18:59 06:59 18:59 Weight 80.286 kg - Exam Abdomen: Soft, nontender, nondistended - Labs CBC & Chem 7: 08/22/19 13:33 Assessment/Plan (1) Morbid obesity Narrative/Plan: Patient overall doing well. Continue dietary and exercise regimen. Patient is concerned about possible need for future abdominoplasty. Will check annual labs at this time. Follow-up 6 months. Plan: Date: 08/22/19 Initial Weight: 98.883 kg Initial BMI: 39.9 Current Weight: 80.286 kg Current BMI: 32.3 Type of Surgery: Total Volume in Band: 0 Previous Volume: Volume Removed: Volume Added: Band Size:
[2019-08-22 19:27] LABS: Albumin 4.6 g/dL (3.80-4.90); Albumin/Globulin Ratio 2.09 (1.60-3.17); Anion Gap 8.2 mmol/L (4.00-12.00); BUN/Creat Ratio 15.56 Ratio (12.00-20.00); Calcium 9.8 mg/dL (8.7-10.3); Carbon Dioxide 26.8 mmol/L (21.6-31.8); Globulin 2.2 g/dL (1.6-3.3); Potassium 4.5 mmol/L (3.5-5.5); Total Bilirubin 0.4 mg/dL (0.3-1.2); Total Protein 6.8 g/dL (6.2-8.2)
[2019-08-22 20:31] LABS: Folate, Serum 12.2 ng/mL
== END | disposition home or self-care (01) ==
LOC: BARWHC3 12:59
PROVIDERS: ATTEND Surgery
DX: E66.01 Morbid (severe) obesity due to excess calories (principal); Z68.32 Body mass index [BMI] 32.0-32.9, adult; K90.89 Other intestinal malabsorption; E55.9 Vitamin D deficiency, unspecified
CPT/HCPCS: 80053; 82306; 82607; 82746; 83540; 84425; 85027; 99211

== ENCOUNTER → 2020-02-16 | Outpatient (CLI) | payer BC ==
[2020-02-16 09:52] VITALS: BP 158/93; PULSE 66; RESP 16; TEMP 97.9; BMI 33.4
--- NOTE | 2020-02-16 10:25 | P.BASOAP ---
Subjective Progress Note Date: 02/16/20 Principal diagnosis: Morbid obesity Patient returns today for reevaluation. Last seen in July. Patient had her sleeve conversion in November 2017. When she was seen last visit patient's vitamin D was low. She is taking vitamin D daily. She has gained 5 pounds. Unfortunately the patient lost her son in August to a drug overdose. The patient admits that after that she had significant depression and did not follow any diet or exercise regimen. She is improving lately. No new complaints. No nausea or vomiting. No reflux. Objective - Vital Signs Vital signs: Vital Signs Temp 97.9 F 02/16/20 09:48 Pulse 66 02/16/20 09:48 Resp 16 02/16/20 09:48 BP 158/93 02/16/20 09:48 Pulse Ox Intake & Output 02/15/20 02/16/20 02/16/20 18:59 06:59 18:59 Weight 82.826 kg - Exam Abdomen: Soft, nontender, nondistended Assessment/Plan (1) Morbid obesity Narrative/Plan: Patient doing well at this time. Continue diet and exercise regimen. Continue vitamin D supplementation. Discussed repeating labs at this time. Patient would prefer to wait. Says she had labs through her PCP in September. Plan follow-up next November. Possible televisit at that time. Plan: Date: 02/16/20 Initial Weight: 98.883 kg Initial BMI: 39.9 Current Weight: 82.826 kg Current BMI: 33.4 Type of Surgery: Total Volume in Band: 0 Previous Volume: Volume Removed: Volume Added: Band Size:
== END | disposition home or self-care (01) ==
LOC: BARWHC3 09:35
PROVIDERS: ATTEND Surgery
DX: E66.01 Morbid (severe) obesity due to excess calories (principal); Z68.33 Body mass index [BMI] 33.0-33.9, adult
CPT/HCPCS: 99211

== ENCOUNTER → 2021-07-08 | Outpatient (CLI) | payer BC ==
--- NOTE | 2021-07-08 13:56 | P.BASOAP ---
Subjective Progress Note Date: 07/08/21 Principal diagnosis: Morbid obesity Patient evaluated today via telehealth while at the hospital. Patient [place] quite a distance from the hospital. She was due for her annual bariatric evaluation. Doing well since she was last seen in January of last year. No nausea or vomiting. No heartburn. Patient does not take antiacids. Patient has gained 4 pounds since last year. She does about 10-15,000 steps per day but says her main issues are drinking occasional soda and junk food while at work. Denies dysphagia. Patient had recent labs. Labs looked good except for vitamin D at 27. Objective - Vital Signs Vital signs: Intake & Output 07/07/21 07/08/21 07/08/21 18:59 06:59 18:59 Weight 84.822 kg - Exam Visibly via video conference patient appeared to be in good health. No distress. Assessment/Plan (1) Morbid obesity Narrative/Plan: Patient doing well at this time. Patient will consider monitoring caloric intake daily. Continue increasing exercise levels. Avoid junk food and soda if possible. Repeat annual evaluation next year. Check annual labs next year. Patient would like to do a telehealth next year as well which I think is reasonable. Plan: Date: Initial Weight: 98.883 kg Initial BMI: Current Weight: 84.822 kg Current BMI: Type of Surgery: Total Volume in Band: 0 Previous Volume: Volume Removed: Volume Added: Band Size:
[2021-07-08 14:13] VITALS: BMI 34.2
== END ==
LOC: BARWHC3 13:34
PROVIDERS: ATTEND Surgery
DX: E66.01 Morbid (severe) obesity due to excess calories (principal); Z68.34 Body mass index [BMI] 34.0-34.9, adult; Z88.0 Allergy status to penicillin
CPT/HCPCS: 99211